=== PATIENT | male | born 2000 | race African-American/Black ===

== ENCOUNTER 2024-08-03 12:31 | Emergency (ER) | payer MEDICAID ==
[~2024-08-03] VITALS: Ht 182.9 cm; Wt 140.0 kg
[2024-08-03 12:37] VITALS: TEMP 96.8
[2024-08-03 14:28] LABS: BASOPHILS % (AUTO) 0.2 % (0-1); EOSINOPHILS # (AUTO) 0.1 X10'3 (0-0.9); EOSINOPHILS % (AUTO) 1.4 % (0-6); HEMATOCRIT 40.3 % (42.0-52.0); HEMOGLOBIN 13.1 g/dl (14.0-17.9); LYMPHOCYTES # (AUTO) 1.5 X10'3 (1.1-4.8); LYMPHOCYTES % (AUTO) 24.1 % (21-51); MEAN CORPUSCULAR HGB CONC 32.6 g/dL (33.0-36.5); MEAN CORPUSCULAR VOLUME 85.9 FL (78-98); MEAN PLATELET VOLUME 7.5 FL (7.4-10.4); MONOCYTES # (AUTO) 0.7 X10'3 (0-0.9); MONOCYTES % (AUTO) 10.4 % (2-12); NEUTROPHILS # (AUTO) 4.1 X10'3 (1.8-7.7); NEUTROPHILS % (AUTO) 63.9 % (42-75); PLATELET COUNT 181 X10'3 (140-440); RED BLOOD COUNT 4.69 X10'6 (4.70-6.10); RED CELL DISTRIBUTION WIDTH 13.4 % (11.5-14.5); WHITE BLOOD COUNT 6.3 X10'3 (4.5-11.0)
[2024-08-03 14:40] LABS: PROTHROMBIN TIME 10.7 SECONDS (9.0-12.0)
[2024-08-03] MEDS ORDERED: HYDR25SU48 RC (15:07)
[2024-08-03 15:27] VITALS: BP 154/89; PULSE 89; RESP 18; O2SAT 96
== END 2024-08-03 15:33 | disposition home or self-care (01) ==
LOC: ER 12:32
DX: K62.5 Hemorrhage of anus and rectum (principal); K64.8 Other hemorrhoids
CPT/HCPCS: 85025; 85610; 99283

== ENCOUNTER 2025-01-08 10:13 | Emergency (ER) | payer MEDICAID ==
[~2025-01-08] VITALS: Ht 177.8 cm; Wt 158.1 kg
[2025-01-08 10:17] VITALS: BP 141/95; PULSE 75; RESP 16; O2SAT 98
[2025-01-08] MEDS ORDERED: ERYT1OIN6 EACHEYE (10:41)
[2025-01-08 10:58] VITALS: TEMP 98
== END 2025-01-08 11:01 | disposition home or self-care (01) ==
LOC: ER 10:14
DX: H10.33 Unspecified acute conjunctivitis, bilateral (principal)
CPT/HCPCS: 99283

== ENCOUNTER 2025-03-16 02:19 | Emergency (ER) | payer MEDICAID ==
[~2025-03-16] VITALS: Ht 182.9 cm; Wt 147.3 kg
[2025-03-16 02:22] VITALS: BP 136/83; PULSE 65; RESP 16; O2SAT 99
[2025-03-16] MEDS ORDERED: DOCU-171 PO (03:23)
[2025-03-16] MEDS ORDERED: LIDO5CRE2 TOP (03:23)
[2025-03-16] MEDS ORDERED: HYDR30CR79 TOP (03:23)
--- NOTE | 2025-03-16 03:23 | Physician Documentation ---
History of Present Illness ~ Chief Complaint: Bloody Stools Stated Complaint: BLOODY DISCHARGE Time Seen by MD: 02:58 HPI Patient presents to the emergency room with complaints of bright red blood per rectum with associated pain. He has history of hemorrhoids. You came in tonight specifically because the pain got worse. He does lift weights in his changed his diet and notes that has stools are hard. Using preparation H with limited benefit. Medication Reconciliation Allergies: Coded Allergies: No Known Allergies (Unverified , 08/03/24) Past Medical History Past Medical History: No Pertinent History Review of Systems ROS All review of systems negative except as per HPI Physical Exam Vital Signs: Temperature: 97.6, Heart Rate: 65, Respiratory Rate: 16, BP: 136/83, Pulse Oximetry: 99, Weight: 147.270 Oxygen Flow Rate: 0 Physical Exam General: Patient is awake, alert, oriented x4 in no acute distress and well appearing.~ Head: Normocephalic and atraumatic. Eyes: Conjunctival normal. EOMI. PERRL. ENT: Mucous membranes moist. Neck: Supple, trachea is midline. Chest: Clear to auscultation bilaterally without rales, rhonchi, or wheezes. There is no accessory muscle use or retractions. Cardiac: RRR without murmurs, gallops, or rubs. : Noted hemorrhoids Progress Results/Orders Results/Orders Vital Signs 03/16/25 02:22 Temp 97.6 Pulse 65 Resp 16 B/P (MAP) 136/83 Pulse Ox 99 O2 Flow Rate 0 Medical Decision Making Findings Patient presents to the emergency room with bright red blood and pain per rectum as per HPI. Differentials include but are not limited to perirectal abscess, h emorrhoids, ulcerative colitis, ingrown hair. Physical exam is consistent with hemorrhoids we will treat him as such. Departure Disposition: 01 HOME / SELF CARE / HOMELESS Impression: Primary Impression: Hemorrhoids Condition: Stable Discharge Instructions: Hemorrhoids, [id number] Additional Instructions: Ibuprofen and Tylenol for pain. We will give you some topical medications. Avoid straining. Sitz baths may be helpful as well as stool softeners. Referrals: NO PRIMARY CARE PROVIDER (PCP) Prescriptions Docusate Sodium (Dulcolax Stool Softener) 100 Mg Capsule 1 CAP PO Q12H for 30 Days, #60 CAP 0 Refills Prov: RAMON BLANCO MD 03/16/25 Lidocaine/Prilocaine (Lidocaine-Prilocaine Cream) 2.5 %-2.5 % Kit 1 GM TOP DAILY for 5 Days, #5 GM 0 Refills Prov: RAMON BLANCO MD 03/16/25 Hydrocortisone (Anusol-Hc) 2.5 % Cream..g. 1 APPLIC TOP Q8H for 10 Days, #30 GM 0 Refills Prov: RAMON BLANCO MD 03/16/25 Education Educated: Patient Educated regarding: diagnosis, treatment, need for follow up Signature Scribe Signature: No scribe Attestation: The note accurately reflects work and decisions made by me.Ramon Blanco MD 03/16/25 03:23 RAMON BLANCO MD Mar 16, 2025 03:23
[2025-03-16] MEDS: ibuprofen tablet 400 MG TABLET PO ONE (03:37)
[2025-03-16] MEDS: LIDOcaine 2% Viscous 15ml cup MM ONE (03:40)
[2025-03-16] MEDS: acetaminophen 325mg tablet PO ONE (03:40)
[2025-03-16 03:49] VITALS: TEMP 97.6
== END 2025-03-16 03:59 | disposition home or self-care (01) ==
LOC: ER 02:20
DX: K64.9 Unspecified hemorrhoids (principal)
CPT/HCPCS: 99284